=== PATIENT | male | born 1950 | race Caucasian/White ===

== ENCOUNTER 2020-04-15 08:30 | Outpatient (CLI) | payer MEDICARE, SELFPAY ==
--- NOTE | ~2020-04-15 | XR_ITS ---
EXAMINATION: XR lumbar spine min 4V DATE: 04/15/2020 08:55 INDICATION: Low back pain. TECHNIQUE: 5 views of lumbar spine including flexion and extension views were obtained. COMPARISON: None. FINDINGS: There is 14 degrees dextroscoliosis of lumbar spine. There is 3 mm anterolisthesis of L4 on L5. Vertebral body heights are normal. There is mildly decreased disc height at L3-L4 and L4-L5. The re are endplate osteophytes at all levels. There is multilevel facet joint osteoarthritis, severe in lower lumbar spine. There is no abnormal motion with flexion or extension. IMPRESSION: 1. Mild lumbar spondylosis. 2. Lumbar dextroscoliosis. Reviewed, dictated and finalized at location A.
== END 2020-04-15 08:31 | disposition home or self-care (01) ==
PROVIDERS: PCP Family Medicine; Visit Provider Nurse Practitioner Family
DX: M47.896 Other spondylosis, lumbar region (principal)
CPT/HCPCS: 72110

== ENCOUNTER → 2021-01-18 08:21 | Outpatient (CLI) | payer MEDICARE, SELFPAY ==
--- NOTE | ~2021-01-18 | XR_ITS ---
EXAMINATION: XR shoulder LT min 2V DATE: 01/18/2021 08:39 INDICATION: Left shoulder pain. TECHNIQUE: 4 views of left shoulder were obtained. COMPARISON: None. FINDINGS: Bone alignment is normal. No fracture. There is moderate osteoarthritis of glenohumeral tamar nt and acromioclavicular joint. IMPRESSION: 1. Polyarticular osteoarthritis. Reviewed, dictated and finalized at location A.
== END ==
PROVIDERS: Visit Provider Nurse Practitioner Family
DX: M19.012 Primary osteoarthritis, left shoulder (principal)
CPT/HCPCS: 73030

== ENCOUNTER 2024-08-22 07:00 | Outpatient (NON) | payer MEDICARE, SELFPAY | END 2024-08-22 07:01 | disposition home or self-care (01) | LOC: ANHLAB 08-23 10:42 | PROVIDERS: PCP Family Medicine; Visit Provider Internal Medicine Gastroenterology | DX: D12.4 Benign neoplasm of descending colon (principal) | CPT/HCPCS: 88305 ==

== ENCOUNTER 2024-08-22 07:17 | Day surgery (SDC) | payer MEDICARE, SELFPAY ==
[2024-06-05 13:37] VITALS: BMI 36.8
[2024-08-05 10:23] VITALS: BMI 34.9
--- NOTE | 2024-08-22 06:53 | WPDANESEPPF ---
Anes - Initial Pre Proc Eval Procedure: Operation Date: 08/22/24 09:00 Proposed Procedures p Diagnostic Colonoscopy - Matty Luna MD Date/Time: 08/22/24 06:53 Surgeon: Matty Luna MD Pre Op Diagnosis: Other Fecal Abnormalities Patient Data Age: 74 Gender: M Height: 1.85 m Weight: 120.3 kg Allergies Allergy/AdvReac Type Severity Reaction Status Date / Time No Known Allergies Allergy Verified 08/22/24 07:38 Home Medications Medication Instructions Recorded Confirmed Type aspirin 81 mg tablet,delayed 81 mg PO DAILY 02/20/20 08/22/24 History release (Adult Low Dose Aspirin) cetirizine 10 mg capsule (Zyrtec) 10 mg PO DAILY PRN Allergy Symptoms 03/30/21 08/22/24 History multivitamin 1 tablet PO DAILY 03/30/21 08/22/24 History metoprolol succinate 100 mg 100 mg PO DAILY #90 tabs 12/20/23 08/22/24 Rx tablet,extended release 24 hr allopurinol 300 mg tablet 300 mg PO DAILY #90 tabs 03/24/24 08/22/24 Rx ramipril 10 mg capsule 10 mg PO DAILY #90 caps 06/25/24 08/22/24 Rx trazodone 100 mg tablet 100 mg PO QHS #90 tabs 07/03/24 08/05/24 Rx atorvastatin 20 mg tablet 20 mg PO DAILY #90 tabs 07/30/24 08/22/24 Rx ascorbic acid (vitamin C) 500 mg 500 mg PO DAILY 08/05/24 08/22/24 History tablet cholecalciferol (vitamin D3) 25 25 mcg PO DAILY 08/05/24 08/22/24 History mcg (1,000 unit) tablet (Vitamin D3) omeprazole 20 mg capsule,delayed 20 mg PO DAILY 08/05/24 08/22/24 History release zinc 50 mg tablet 50 mg PO DAILY 08/05/24 08/05/24 History tramadol 50 mg tablet 50 mg PO Q6H PRN pain #30 tabs 08/12/24 08/22/24 Rx meloxicam 15 mg tablet See Rx Instructions .Route 08/15/24 08/22/24 Rx .COMPLEX #90 tabs amlodipine 5 mg tablet See Rx Instructions .Route 10/15/24 10/17/24 Rx .COMPLEX #90 tabs Patient hx anesthesia problems: none Family hx anesthesia problems: none Results Review: All pre-operative results and documents have been reviewed as part of the pre-operative evaluation. [facility] Past Medical History Medical History (Updated 05/20/24 @ 12:40 by FAIZA Dias) Alcohol abuse, daily use BMI 36.0-36.9,adult Changing skin lesion Essential hypertension Gout, unspecified Hip osteoarthritis Insomnia Leg edema Mixed hyperlipidemia Otitis externa Vitamin D deficiency Family History Family History Mother Hypertension Father No problems noted. Sibling No problems noted. Social History Social History Smoking status: Never smoker Second hand tobacco smoke exposure: No Alcohol intake: current Drinks per week: 84 Alcohol use details: 10-12 beers per day Substance use: never Substance use type: does not use Lack of Transportation: No Lack of Food: Never True Current Housing: I Do Not Have Housing Concerned About Future Housing: No Difficulty Paying Gas/Electric Bills: No Difficulty Paying for Meds: No Currently Unemployed: No Education: Trade/Vocational Certificate Difficulty w/ Childcare or Family Care: No Living arrangements: with family Occupation/Education: retired Spiritual care concerns: No Anes - Eval Final PreProcedure Day of Procedure 08/22/24 06:53 Patient weight: obese Heart: regular rate and rhythm Lungs: clear to auscultation Airway: Mallampati scale class II Neurological: alert and oriented Last oral intake: >/= 8 hours ASA classification: III Emergent: no Anesthetic plan: proceed Anesthesia type and monitoring: general GIVS and standard monitoring Results Review: All pre-operative results and documents have been reviewed as part of the pre-operative evaluation. Informed Consent: The patient's anesthetic plan and its attendant risks and benefits were discussed with the patient/family/POA. Questions were solicited and answers provided to the satisfaction of the patient/family/POA.
[2024-08-22 07:43] VITALS: BP 169/87; PULSE 79; RESP 20; TEMP 36.8; O2SAT 99; BMI 35.1
--- NOTE | 2024-08-22 08:28 | PM.HPGS ---
History of Present Illness History of Present Illness Consent: Risks, benefits, and alternatives have been discussed and questions answered. Patient agrees to proceed with procedure. Chief complaint: Other Fecal Abnormalities Narrative: Ankit Biggs is a 74 year old male presents for colonoscopy. Recent Cologuard test was performed and found to be positive. Patient denies abdominal pain. Has had no bleeding. Family history is noncontributory. Review of Systems Review of Systems: All systems reviewed & are unremarkable except as noted in HPI and below PMFSH Past Medical History Medical History (Updated 05/20/24 @ 12:40 by FAIZA Dias) Alcohol abuse, daily use BMI 36.0-36.9,adult Changing skin lesion Essential hypertension Gout, unspecified Hip osteoarthritis Insomnia Leg edema Mixed hyperlipidemia Otitis externa Vitamin D deficiency Family History Family History Mother Hypertension Father No problems noted. Sibling No problems noted. Social History Social History Smoking status: Never smoker Second hand tobacco smoke exposure: No Alcohol intake: current Drinks per week: 84 Alcohol use details: 10-12 beers per day Substance use: never Substance use type: does not use Lack of Transportation: No Lack of Food: Never True Current Housing: I Do Not Have Housing Concerned About Future Housing: No Difficulty Paying Gas/Electric Bills: No Difficulty Paying for Meds: No Currently Unemployed: No Education: Trade/Vocational Certificate Difficulty w/ Childcare or Family Care: No Living arrangements: with family Occupation/Education: retired Spiritual care concerns: No Meds Home Medications and Allergies Home Medications Medication Instructions Recorded Confirmed Type aspirin 81 mg tablet,delayed 81 mg PO DAILY 02/20/20 08/22/24 History release (Adult Low Dose Aspirin) cetirizine 10 mg capsule (Zyrtec) 10 mg PO DAILY PRN Allergy Symptoms 03/30/21 08/22/24 History multivitamin 1 tablet PO DAILY 03/30/21 08/22/24 History metoprolol succinate 100 mg 100 mg PO DAILY #90 tabs 12/20/23 08/22/24 Rx tablet,extended release 24 hr allopurinol 300 mg tablet 300 mg PO DAILY #90 tabs 03/24/24 08/22/24 Rx ramipril 10 mg capsule 10 mg PO DAILY #90 caps 06/25/24 08/22/24 Rx trazodone 100 mg tablet 100 mg PO QHS #90 tabs 07/03/24 08/05/24 Rx atorvastatin 20 mg tablet 20 mg PO DAILY #90 tabs 07/30/24 08/22/24 Rx ascorbic acid (vitamin C) 500 mg 500 mg PO DAILY 08/05/24 08/22/24 History tablet cholecalciferol (vitamin D3) 25 25 mcg PO DAILY 08/05/24 08/22/24 History mcg (1,000 unit) tablet (Vitamin D3) omeprazole 20 mg capsule,delayed 20 mg PO DAILY 08/05/24 08/22/24 History release zinc 50 mg tablet 50 mg PO DAILY 08/05/24 08/05/24 History tramadol 50 mg tablet 50 mg PO Q6H PRN pain #30 tabs 08/12/24 08/22/24 Rx meloxicam 15 mg tablet See Rx Instructions .Route 08/15/24 08/22/24 Rx .COMPLEX #90 tabs amlodipine 5 mg tablet See Rx Instructions .Route 08/20/24 08/22/24 Rx .COMPLEX #90 tabs Allergies Allergy/AdvReac Type Severity Reaction Status Date / Time No Known Allergies Allergy Verified 08/22/24 07:38 Vital Signs Vital Signs - 24 hr 08/22/24 07:43 Temperature 98.3 F Pulse Rate 79 Respiratory Rate 20 Blood Pressure 169/87 H Pulse Oximetry 99 Oxygen Delivery Room Air Exam Narrative: Physical exam reveals patient to be alert. Vital signs stable. HEENT exam is unremarkable. Patient is anicteric. Lungs are clear to auscultation and to percussion. Heart is without murmur or extra sounds. Abdomen bowel sounds are present soft nontender with no organomegaly. Digital and external rectal exam normal. Assessment and Plan Assessment and plan (1) Positive colorectal cancer screening using Cologuard test:
[2024-08-22] MEDS: LACTATED RINGERS 1,000 ML 150 ML IV CONT (09:01)
[2024-08-22 09:28] VITALS: BP 143/74; PULSE 72; RESP 18; O2SAT 98
[2024-08-22 09:38] VITALS: BP 148/80; PULSE 69; RESP 18; O2SAT 100
[2024-08-22 09:48] VITALS: BP 159/76; PULSE 62; RESP 18; O2SAT 100
--- NOTE | 2024-08-22 12:43 | WPDANESPN ---
Anes - Prog Note Post-Op Date/Time: 08/22/24 12:43 Cardiovascular status: normal Respiratory status: normal Airway patency: baseline Mental status: baseline Post-Op hydration status: normal Vital Signs: Last Vital Signs Temp 36.8 C 08/22/24 07:43 Pulse 62 08/22/24 09:48 Resp 18 08/22/24 09:48 BP 159/76 H 08/22/24 09:48 Pulse Ox 100 08/22/24 09:48 O2 Del Method Room Air 08/22/24 09:48 Pain Score (VAS): 0 I/O: Intake & Output 08/21/24 08/22/24 08/22/24 23:59 07:59 15:59 Intake Total 650 Balance 650 Post-procedural complaints: none Patient Feedback: Patient satisfied with anesthetic care. Other Findings: Patient vital signs back to baseline. Patient denies nausea and vomiting. Patient's pain under control. Patient OK for discharge.
== END 2024-08-22 10:01 | disposition home or self-care (01) ==
PROVIDERS: PCP Family Medicine; Visit Provider Internal Medicine Gastroenterology
PROC: 0DJD8ZZ Inspection of Lower Intestinal Tract, Via Natural or Artificial Opening Endoscopic (ICD-10-PCS; CPT 45378; principal; 2024-08-22 09:00)
DX: Z86.0100 Personal history of colon polyps, unspecified (principal); D12.4 Benign neoplasm of descending colon; K57.30 Diverticulosis of large intestine without perforation or abscess without bleeding; K64.8 Other hemorrhoids
CPT/HCPCS: 45385

== ENCOUNTER 2025-04-16 10:08 | Outpatient (CLI) | payer MEDICARE, SELFPAY ==
--- NOTE | ~2025-04-16 | XR_ITS ---
Lumbosacral Spine: AP and lateral views Clinical History: Pain Findings: There is mild dextroscoliosis there is 5 mm anterolisthesis of L4 over L5. There is severe facet arthropathy, especially from L3 through S1. There is mild degenerative disc narrowing at the lo wer lumbar spine.. The sacroiliac joints are normally outlined. Impression: Moderate to advanced degenerative spondylosis of the lower lumbar spine, as above. 5 mm anterolisthesis of L4 over L5. Reviewed, dictated and finalized at location M. Impression: Moderate to advanced degenerative spondylosis of the lower lumbar spine, as abo ve. 5 mm anterolisthesis of L4 over L5.
== END 2025-04-16 10:09 | disposition home or self-care (01) ==
LOC: MICIMG 10:09
PROVIDERS: PCP Family Medicine; Visit Provider Nurse Practitioner Family
DX: M47.896 Other spondylosis, lumbar region (principal); M43.16 Spondylolisthesis, lumbar region
CPT/HCPCS: 72100

== ENCOUNTER 2025-04-21 09:15 | Outpatient (CLI) | payer MEDICARE, SELFPAY ==
--- NOTE | ~2025-04-21 | CT_ITS ---
CT lumbar spine wo con Ordering provider: Ivelisse Sanchez, [employer] History: 74 years Male with . Lumbar Radiculopathy . Comparison: None. Technique: CT lumbar spine without contrast. Automated exposure control and iterative reconstruction technique were employed. The dose-length product was 952.88 mGy-cm. FINDINGS: VERTEBRAE: Normal height and alignment. No subluxation or visible acute fracture. Degenerative change s of the spine. Mild dextroscoliosis. DISC SPACES: Narrowing of the disc L1-L2, L3-L4 and L4-L5. Multilevel facet joint disease... T11/T12: Narrowing of the right foramen. Prominent right facet joint disease. T12-L1: No stenosis. L1-L2: No stenosis. L2-L3: No stenosis. L3-L4: No stenosis. Mild diffuse disc bulge more to the left L4-L5: Mild spinal canal stenosis secondary to broad based disc bulge, facet arthropathy, and ligame ntum flavum hypertrophy. Narrowing of the left foramen with possible root compression. L5-S1: No stenosis. . Disc bulge with central protrusion narrowing of the left foramen with root com pression. PARASPINOUS SOFT TISSUES: Mild atheromatous disease of the abdominal aorta. Bilateral sacroiliacs. IMPRESSION: Multilevel degenerative disc disease with variable degrees of spinal canal stenosis and intervertebra l vertebral foraminal narrowing. MRI is better for evaluation. Reviewed, dictated and finalized at location A. IMPRESSION: Multilevel degenerative disc disease with variable degrees of spinal canal sten osis and intervertebral vertebral foraminal narrowing. MRI is better for evaluation.
== END 2025-04-21 09:16 | disposition home or self-care (01) ==
LOC: MICIMG 09:15
PROVIDERS: PCP Family Medicine; Visit Provider Nurse Practitioner Family
DX: M51.360 Other intervertebral disc degeneration, lumbar region with discogenic back pain only (principal); M51.361 Other intervertebral disc degeneration, lumbar region with lower extremity pain only; M48.061 Spinal stenosis, lumbar region without neurogenic claudication; M47.817 Spondylosis without myelopathy or radiculopathy, lumbosacral region
CPT/HCPCS: 72131